=== PATIENT | female | born 1990 | race Caucasian/White ===

== ENCOUNTER → 2024-11-16 09:31 | Outpatient (REF) | payer BC, SELFPAY | LOC: WDC 09:31 | PROVIDERS: ATTENDING PHYSICIAN Student in an Organized Health Care Education/Training Program; FAMILY PHYSICIAN Physician Assistant Medical | DX: N63.15 Unspecified lump in the right breast, overlapping quadrants (principal) | CPT/HCPCS: 76642; 77062; 77066 ==